=== PATIENT | male | born 1975 | race American Indian/Alaskan Native ===

== ENCOUNTER 2017-02-08 11:03 | Emergency (ER) | payer SELFPAY ==
--- NOTE | 2017-02-08 12:53 | XRay Report ---
CHEST 2 VIEWS INDICATION: Shortness of breath. COMPARISON: 07/03/2012. FINDINGS: PA and lateral chest radiographs demonstrate normal cardiomediastinal silhouette. Clear lungs. Intact bones. CONCLUSION: No acute disease in the chest. Thank you for the opportunity to participate in this patient's care.
[2017-02-08 13:09] LABS: Basophils % (Auto) 1.1 % (0.0-1.8); Eosinophils % (Auto) 2.7 % (0.0-4.3); Hematocrit 43.7 % (35.5-45.6); Hemoglobin 13.9 gm/dl (11.8-15.2); Mean Corpuscular HGB Conc 32 % (32-34); Mean Corpuscular Hemoglobin 30 pg (28-32); Mean Corpuscular Volume 94 fl (84-94); Platelet Count 304 K/mm3 (140-440); Red Blood Count 4.65 M/mm3 (3.65-5.03); Red Cell Distribution Width 13.3 % (13.2-15.2); White Blood Count 6.7 K/mm3 (4.5-11.0)
[2017-02-08 13:30] LABS: Anion Gap 19 mmol/L; BUN/Creatinine Ratio 6; Blood Urea Nitrogen 5 mg/dL (9-20); Calcium 8.7 mg/dL (8.4-10.2); Carbon Dioxide 25 mmol/L (22-30); Chloride 102.2 mmol/L (98-107); Glucose 76 mg/dL (75-100); Potassium 4.1 mmol/L (3.6-5.0); Sodium 142 mmol/L (137-145)
[2017-02-08 18:20] VITALS: BP 128/97
[2017-02-08] MEDS ORDERED: ATIVAN PO ONE (18:29)
--- NOTE | 2017-02-08 18:34 | Emergency Department Report ---
ED Anxiety HPI - General Chief Complaint: Anxiety Stated Complaint: SOB,ANXIETY Time Seen by Provider: 02/08/17 17:59 Source: patient, family Mode of arrival: Ambulatory - History of Present Illness Initial Comments: Pt here reports that he had an anxiety disorder and he was hyperventilating at home and had a headache and feeling jittery. He said he had to call the ambulance but when he was in ambulance he told the ambulance not to taken to the hospital but they brought him to the hospital anyways. He reports headache at 1/10 to the front of his head that feels dull. He said he has a history of anxiety disorder and asthma. He said he is not sure what brought on is anxiety this time and he thinks his life. He had documented that he had shortness of breath and ambulance but he denies any shortness of breath at present. Patient is yelling and screaming in an very agitated. He denies any chest pain. He said the last time he was here in 2012 they give him Ativan and that helped a lot. He said he does not have a primary care physician at present. Denies Substance abuse to include alcohol, nicotine or illicit drug use. Denies any nausea or vomiting MD Complaint: anxiety, heart racing -: This afternoon Symptoms: palpitations Place: home Previous History of Same: Yes Severity: moderate Quality: intermittant Provoking factors: emotional stress Improves With: nothing Worsens With: nothing Associated symptoms: palpitations. denies: chest pain, shortness of breath, diaphoresis, denies other symptoms, confusion, cough, fever/chills, headaches, anorexia, malaise, nausea/vomiting, rash, seizure, syncope, weakness - Related Data Home Medications: Home Medications Medication Instructions Recorded Confirmed Last Taken Albuterol Sulfate [Albuterol 0.63%] 04/20/13 04/20/13 Unknown Previous Rx's Medication Instructions Recorded Last Taken Type ALBUTEROL NEB's [Proventil 0.083% 2.5 mg IH Q4HR PRN #1 box 04/20/13 Unknown Rx NEBS] Albuterol Sulfate [Ventolin HFA] 2 puff IH Q4H PRN #1 hfa.aer.ad 04/20/13 Unknown Rx ALBUTEROL Inhaler [ProAir HFA 2 puff IH QID PRN #1 inhalation 10/13/13 Unknown Rx Inhaler] predniSONE [Deltasone] 50 mg PO QDAY #4 tab 10/13/13 Unknown Rx LORazepam [Ativan] 1 mg PO QHS PRN #7 tab 02/08/17 Unknown Rx Allergies/Adverse Reactions: Allergies Allergy/AdvReac Type Severity Reaction Status Date / Time No Known Allergies Allergy Verified 02/08/17 11:33 ED Review of Systems ROS: Stated complaint: SOB,ANXIETY Other details as noted in HPI Comment: All other systems reviewed and negative Constitutional: no symptoms reported ENT: denies: ear pain, throat pain, hearing loss, epistaxis, congestion Respiratory: no symptoms reported Cardiovascular: denies: chest pain, palpitations, dyspnea on exertion, edema, syncope, paroxysmal nocturnal dyspnea Gastrointestinal: denies: nausea, vomiting Musculoskeletal: denies: back pain, joint swelling, arthralgia, myalgia Skin: denies: rash Neurological: denies: headache, weakness, numbness, paresthesias, confusion, abnormal gait, vertigo Psychiatric: anxiety. denies: depression, auditory hallucinations, visual hallucinations, homicidal thoughts, suicidal thoughts ED Past Medical Hx - Past Medical History Previous Medical History?: Yes Hx Psychiatric Treatment: Yes (anxiety) Hx Asthma: Yes - Surgical History Past Surgical History?: No - Family History Family history: no significant - Social History Smoking Status: Never Smoker Substance Use Type: None - Medications Home Medications: Home Medications Medication Instructions Recorded Confirmed Last Taken Type ALBUTEROL NEB's [Proventil 0.083% 2.5 mg IH Q4HR PRN #1 box 04/20/13 Unknown Rx NEBS] Albuterol Sulfate [Albuterol 0.63%] 04/20/13 04/20/13 Unknown History Albuterol Sulfate [Ventolin HFA] 2 puff IH Q4H PRN #1 hfa.aer.ad 04/20/13 Unknown Rx ALBUTEROL Inhaler [ProAir HFA 2 puff IH QID PRN #1 inhalation 10/13/13 Unknown Rx Inhaler] predniSONE [Deltasone] 50 mg PO QDAY #4 tab 10/13/13 Unknown Rx LORazepam [Ativan] 1 mg PO QHS PRN #7 tab 02/08/17 Unknown Rx ED Physical Exam - General Limitations: No Limitations General appearance: alert, in no apparent distress - Head Head exam: Present: atraumatic, normocephalic, normal inspection - Eye Eye exam: Present: normal appearance, PERRL, EOMI. Absent: periorbital swelling , periorbital tenderness Pupils: Present: normal accommodation - ENT ENT exam: Present: normal exam, normal orophraynx, mucous membranes moist - Neck Neck exam: Present: normal inspection, full ROM. Absent: tenderness, meningismus, lymphadenopathy - Respiratory Respiratory exam: Present: normal lung sounds bilaterally. Absent: respiratory distress, wheezes, rales, rhonchi, stridor, chest wall tenderness, accessory muscle use, decreased breath sounds, prolonged expiratory - Cardiovascular Cardiovascular Exam: Present: regular rate, normal rhythm, normal heart sounds. Absent: systolic murmur, diastolic murmur - GI/Abdominal GI/Abdominal exam: Present: soft, normal bowel sounds. Absent: distended, tenderness, guarding, rebound, rigid - Extremities Exam Extremities exam: Present: normal inspection, full ROM, normal capillary refill , other (no clubbing, cyanosis or edema. +2 pulses in all extremities. No neurovascular compromise.). Absent: tenderness, pedal edema, joint swelling, calf tenderness - Back Exam Back exam: Present: normal inspection, full ROM. Absent: tenderness, CVA tenderness (R), CVA tenderness (L), muscle spasm, paraspinal tenderness, vertebral tenderness, rash noted - Neurological Exam Neurological exam: Present: alert, oriented X3, normal gait, reflexes normal, other (No focal neurological deficit). Absent: motor sensory deficit - Psychiatric Psychiatric exam: Present: normal affect, anxious (mild anxiety and slightly aggressive behavior.). Absent: depressed, agitated, flat affect, manic, homicidal ideation, suicidal ideation - Skin Skin exam: Present: warm, dry, intact, normal color. Absent: rash ED Course Vital Signs 02/08/17 02/08/17 11:33 18:11 Temperature 98.6 F 98.7 F Pulse Rate 91 H 87 Respiratory 18 18 Rate Blood Pressure 134/93 Blood Pressure 128/97 [Right] O2 Sat by Pulse 97 97 Oximetry - Reevaluation(s) Reevaluation #1: 02/08/17 18:39 Given Ativan 1 mg by mouth. He stable and in no acute distress. ED Medical Decision Making - Lab Data Result diagrams: 02/08/17 12:50 02/08/17 12:50 Lab Results 02/08/17 02/08/17 Range/Units 12:50 12:50 WBC 6.7 (4.5-11.0) K/mm3 RBC 4.65 (3.65-5.03) M/mm3 Hgb 13.9 (11.8-15.2) gm/dl Hct 43.7 (35.5-45.6) % MCV 94 (84-94) fl MCH 30 (28-32) pg MCHC 32 (32-34) % RDW 13.3 (13.2-15.2) % Plt Count 304 (140-440) K/mm3 Lymph % (Auto) 26.9 (13.4-35.0) % E[place] % (Auto) 14.4 H (0.0-7.3) % Eos % (Auto) 2.7 (0.0-4.3) % Baso % (Auto) 1.1 (0.0-1.8) % Lymph # 1.8 (1.2-5.4) K/mm3 Eaton # 1.0 H (0.0-0.8) K/mm3 Eos # 0.2 (0.0-0.4) K/mm3 Baso # 0.1 (0.0-0.1) K/mm3 Seg Neutrophils % 54.9 (40.0-70.0) % Seg Neutrophils # 3.7 (1.8-7.7) K/mm3 Sodium 142 (137-145) mmol/L Potassium 4.1 (3.6-5.0) mmol/L Chloride 102.2 (98-107) mmol/L Carbon Dioxide 25 (22-30) mmol/L Anion Gap 19 mmol/L BUN 5 L (9-20) mg/dL Creatinine 0.8 (0.8-1.5) mg/dL Estimated GFR > 60 ml/min BUN/Creatinine Ratio 6 % Glucose 76 (75-100) mg/dL Calcium 8.7 (8.4-10.2) mg/dL - Radiology Data Radiology results: report reviewed Chest x-ray reviewed no acute cardiopulmonary findings. - Medical Decision Making ED course: Patient here reports anxiety attack at home today. He said he was feeling fine and he asked the ambulance to take him home. Patient with previous documented history of anxiety and was given Ativan in the past. Patient is agitated with loud voice and less anxiety. Vital signs are stable, CBC and BMP is stable and chest x-ray stable. I discussed the patient at his lab work and chest x-ray stable .he was given Ativan 1 mg by mouth and emergency room. I discussed with him that I can give him Ativan No. 7 pill to go home that he will need to schedule an appointment with [facility] for management of chronic anxiety. He agreed. Patient discharged home with family with prescription for Ativan daily at bedtime #7 pill as needed and to follow up at [facility]. Critical care attestation.: If time is entered above; I have spent that time in minutes in the direct care of this critically ill patient, excluding procedure time. ED Disposition Clinical Impression: Anxiety Disposition: DC-01 TO HOME OR SELFCARE Is pt being admited?: No Does the pt Need Aspirin: No Condition: Stable Instructions: Anxiety (ED) Additional Instructions: Please follow up with [facility] in 3 days and call on Saturday to schedule an appointment Ativan at bedtime 1 mg if needed for anxiety Prescriptions: LORazepam [Ativan] 1 mg PO QHS PRN #7 tab PRN Reason: Anxiety Referrals: [facility] [Outside] - 02/11/17 Forms: Accompanied Note, Work/School Release Form(ED)
== END 2017-02-08 18:58 | disposition home or self-care (01) ==
LOC: ED 11:03
DX: F41.9 Anxiety disorder, unspecified (principal); J45.909 Unspecified asthma, uncomplicated
CPT/HCPCS: 36415; 71020; 80048; 85025